=== PATIENT | male | born 1980 | race Caucasian/White ===

== ENCOUNTER → 2020-12-23 | Outpatient (CLI) | payer OTHER ==
[~2020-12-23] MED LIST: AUGMENTIN 875875 MG PO; NAPROSYN500 MG PO; NOHOMEMEDICATIONS
== END ==
LOC: CAT 09:02
PROVIDERS: ATTEND Family Medicine
DX: Z13.6 Encounter for screening for cardiovascular disorders (principal); I25.10 Atherosclerotic heart disease of native coronary artery without angina pectoris; E78.00 Pure hypercholesterolemia, unspecified

== ENCOUNTER → 2021-01-09 | Outpatient (CLI) | payer BC | LOC: ULTRA 07:43 | PROVIDERS: ATTEND Family Medicine | DX: N20.0 Calculus of kidney (principal); R16.1 Splenomegaly, not elsewhere classified; E78.5 Hyperlipidemia, unspecified ==